=== PATIENT | male | born 1945 | race Caucasian/White ===

== ENCOUNTER 2024-10-28 04:10 | Observation (INO) ==
[2024-10-28 05:34] LABS: Basophils%(Percent) Auto 0.4 (0.0-1.3); Eosinophils#(Absolute)Auto 0.2 (0.0-0.3); Eosinophils%(Percent) Auto 2.4 % (0.0-4.0); Granulocytes % - Auto 62.6 % (49.1-73.1); Granulocytes#(Absolute)- Auto 5.1 (2.0-6.2); Hematocrit 39.3 % (41.3-50.1); Monocytes %(Percent)- Auto 12.7 % (4.5-10.7); Platelet Count 150 K/uL (142-355); White Blood Count 8.2 K/uL (3.7-9.6)
--- NOTE | 2024-10-28 05:47 | Emergency Department Note ---
HPI - URI/Sore Throat General Chief Complaint: Upper Respiratory Infection Stated Complaint: HEAD AND SINUS PRESSURE,COUGH Source: patient and family Limitations: no limitations Related Data Home Medications Medication Instructions Recorded Confirmed apixaban 5 mg tablet (Eliquis) 10 mg PO DAILY 06/01/24 06/01/24 finasteride 5 mg tablet 5 mg PO DAILY 06/01/24 06/01/24 gabapentin 600 mg tablet 600 mg PO TID 06/01/24 06/01/24 lisinopril 20 mg tablet 20 mg PO DAILY 06/01/24 06/01/24 tamsulosin 0.4 mg capsule 0.4 mg PO BEDTIME 06/01/24 06/01/24 Allergies Allergy/AdvReac Type Severity Reaction Status Date / Time No Known Drug Allergies Allergy Verified 10/28/24 04:53 PFSH PFS Medical History (Updated 06/01/24 @ 21:56 by MICHAEL Mcarthur) Benign prostate hyperplasia Hypertension Hyperlipidemia Surgical History (Updated 10/28/24 @ 05:01 by Iris Alexandra RN) H/O heart artery stent Social History Smoking status: never smoker Exam Constitutional: Vital Signs - 24 hr 10/28/24 04:10 10/28/24 05:30 Temperature 99.1 F Pulse Rate 92 H 56 L Respiratory Rate 20 19 Blood Pressure 109/74 130/70 Pulse Oximetry 93 L 96 Oxygen Delivery Me thod Room Air Room Air Course Vital Signs Vital signs: Vital Signs Temperature 99.1 F 10/28/24 04:10 Pulse Rate 92 H 10/28/24 04:10 Respiratory Rate 20 10/28/24 04:10 Blood Pressure 109/74 10/28/24 04:10 Pulse Oximetry 93 L 10/28/24 04:10 Oxygen Delivery Method Room Air 10/28/24 04:10 Temperature 99.1 F 10/28/24 04:10 Pulse Rate 56 L 10/28/24 05:30 Respiratory Rate 19 10/28/24 05:30 Blood Pressure 130/70 10/28/24 05:30 Pulse Oximetry 96 10/28/24 05:30 Oxygen Delivery Method Room Air 10/28/24 05:30 Discharge Plan Discharge Chief Complaint: Upper Respiratory Infection Prescriptions: No Action Eliquis 5 mg tablet 10 mg PO DAILY Patient Comments: TAKE ONE TABLET BY MOUTH TWICE DAILY finasteride 5 mg tablet 5 mg PO DAILY Patient Comments: TAKE ONE TABLET BY MOUTH DAILY gabapentin 600 mg tablet 600 mg PO TID Patient Comments: TAKE ONE TABLET BY MOUTH THREE TIMES DAILY lisinopril 20 mg tablet 20 mg PO DAILY Patient Comments: TAKE ONE TABLET BY MOUTH TWICE DAILY tamsulosin 0.4 mg capsule 0.4 mg PO BEDTIME Patient Comments: TAKE ONE CAPSULE BY MOUTH AT BEDTIME Print Language: Slovenian Referrals: Lucia Washington DO [Primary Care Provider] -
[2024-10-28 05:59] LABS: Specific Gravity Urine 1.025 (1.001-1.035); Urine Appearance CLEAR (CLEAR); Urine Blood NEGATIVE (NEG - TRACE); Urine Color YELLOW (STRAW/YELL.); Urine Urobilinogen Normal (NORMAL)
--- NOTE | 2024-10-28 06:40 | Emergency Department Note ---
HPI - URI/Sore Throat General Chief Complaint: Upper Respiratory Infection Stated Complaint: HEAD AND SINUS PRESSURE,COUGH Time Seen by Provider: 10/28/24 06:32 Source: patient and family Limitations: no limitations History of Present Illness HPI Narrative: This is a 79 year old male patient that presents to the ER with c/o cough, congestion, and bodyaches for 5 days. Patient denies any SOB, back pain, chest pain, abdominal pain or N/V/D MD elicited complaint: Reports cough, rhinorrhea and nasal congestion Onset (ago): day(s) (5) Exacerbating factors: Reports nothing Relieving factors: Reports nothing Associated symptoms: Reports rhinorrhea, nasal congestion and cough Treatments prior to arrival: Reports none Related Data Home Medications Medication Instructions Recorded Confirmed apixaban 5 mg tablet (Eliquis) 10 mg PO DAILY 06/01/24 06/01/24 finasteride 5 mg tablet 5 mg PO DAILY 06/01/24 06/01/24 gabapentin 600 mg tablet 600 mg PO TID 06/01/24 06/01/24 lisinopril 20 mg tablet 20 mg PO DAILY 06/01/24 06/01/24 tamsulosin 0.4 mg capsule 0.4 mg PO BEDTIME 06/01/24 06/01/24 Allergies Allergy/AdvReac Type Severity Reaction Status Date / Time No Known Drug Allergies Allergy Verified 10/28/24 04:53 Review of Systems Status of ROS 10 or more systems reviewed and unremark able except as noted in h istory and below Constitutional Denies: fever, chills, change in weight, fatigue or malaise Eyes Denies: change in vision, blurry vision, blind spots, light sensitivity or eye discomfort Ears, nose, mouth, and throat Reports: nasal discharge and nasal congestion; Denies: throat pain, neck pain, throat swelling, difficulty swallowing, hoarseness, mouth pain or swelling of lips/tongue Cardiovascular Denies: chest pain, palpitations, edema, swelling of feet/ankles, lightheadedness or shortness of breath with exertion Respiratory Reports: cough; Denies: shortness of breath, wheezing, stridor, pain on inspiration or change in phlegm color Gastrointestinal Denies: abdominal pain, nausea, vomiting, coffee grounds in vomit, heartburn, diarrhea or constipation Genitourinary Denies: painful urination, urinary frequency, urinary urgency, blood in urine or genital pain Musculoskeletal Denies: back pain, neck pain, extremity swelling, joint pain or limited range of motion Integumentary/Breast Denies: rash, itching, redness, skin pain, skin tenderness or skin swelling Neurological Denies: headache, numbness in extremities, weakness in extremities, lack of coordination or dizziness Psychiatric Denies: anxiety, mood swings, panic attacks, change in sleep pattern or hopelessness Endocrine Denies: excessive urination, excessive thirst, fatigue, cold intolerance or excessive sweating Hematologic/Lymphatic Denies: easy bruising, easy bleeding or enlarged lymph nodes Allergic/Immunologic Denies: hives, throat swelling, tongue swelling, facial swelling or wheezing PFSH PFSH Medical History (Updated 10/28/24 @ 09:58 by ANDREA Bush) Afib Benign prostate hyperplasia Hypertension Hyperlipidemia Surgical History (Updated 10/28/24 @ 05:01 by Iris Alexandra RN) H/O heart artery stent Social History Smoking status: never smoker Exam Constitutional: normal general appearance and no apparent distress Vital Signs - 24 hr 10/28/24 04:10 10/28/24 05:30 10/28/24 05:59 Temperature 99.1 F Pulse Rate 92 H 56 L 51 L Respiratory Rate 20 19 18 Blood Pressure 109/74 130/70 155/77 Pulse Oximetry 93 L 96 93 L Oxygen Delivery Me thod Room Air Room Air Room Air 10/28/24 06:30 10/28/24 06:55 Temperature Pulse Rate 100 H Respiratory Rate 20 Blood Pressure 160/112 Pulse Oximetry 94 L [facility] HENMT: normocephalic, head/scalp atraumatic, hearing grossly normal bilaterally, external ears normal, nasal mucous membranes normal, external nose normal, oral mucous membranes normal and oropharynx normal + nasal congestion Eyes: PERRL, EOMs intact bilaterally, conjunctivae normal and no scleral icterus Neck/C-Spine: visual inspection normal and trachea midline Lymph: no lymphadenopathy noted Chest: inspection of chest normal Respiratory: breath sounds equal bilaterally, normal respiratory effort, clear to auscultation bilaterally, no wheezes, no rales, no retractions and no use of accessory muscles Cardiovascular: normal heart rate noted, regular rhythm noted, no gallop, no rub, no murmur, no JVD, no clicks, peripheral pulses 2+ throughout and no additional abnormal heart sounds Gastrointestinal: abdomen normal to inspection, abdomen soft to palpation, nontender to palpation, nontender to percussion, nondistended, normoactive bowel sounds, no hepatosplenomegaly, no masses, no pulsatile mass, no ascites and no hernia Genitourinary: no CVA tenderness Back/Pelvis: spine normal to inspection Extremities: normal to inspection, normal to palpation, no tenderness, full ROM, no joint enlargement and no deformity Neurology: no movement abnormality noted, no focal motor deficit noted, no sensory deficits noted, speech normal, coordination normal, no pronator drift noted, no fasciculations noted and GCS normal Psychiatry: mental status grossly normal, oriented x3, thought process normal, cooperative, affect normal, psychomotor activity normal and memory normal Skin: skin color normal Course Course Hospital Course: 702: due to walking O2 sat dropping to 92% with increasing HR, will admit patient to the hospital for further evaluation and treatment. Reevaluation(s) Reevaluation #1: [id number]: Due to increase HR 150-160 Afib, patient has a hx of afib, new orders given Vital Signs Vital signs: Vital Signs Temperature 99.1 F 10/28/24 04:10 Pulse Rate 92 H 10/28/24 04:10 Respiratory Rate 20 10/28/24 04:10 Blood Pressure 109/74 10/28/24 04:10 Pulse Oximetry 93 L 10/28/24 04:10 Oxygen Delivery Method Room Air 10/28/24 04:10 Temperature 99.1 F 10/28/24 04:10 Pulse Rate 116 H 10/28/24 09:07 Respiratory Rate 18 10/28/24 08:35 Blood Pressure 102/66 10/28/24 09:07 Pulse Oximetry 95 10/28/24 09:07 Oxygen Delivery Method Nasal Cannula 10/28/24 09:07 Oxygen Flow Rate 2 10/28/24 09:00 MDM - URI/Sore Throat Differential Diagnosis Upper Respiratory Differential Diagnosis: upper respiratory infection Medical Records [facility] Medical Records Attestation: I reviewed the patient's medical records. Lab Data Attestation: I reviewed the patient's lab results. Labs: Lab Results 10/28/24 10/28/24 10/28/24 Range/Units 04:30 05:20 05:30 WBC 8.2 (3.7-9.6) K/uL RBC 4.1 L (4.40-5.80) M/uL Hgb 13.2 L (14.0-17.4) gm/dL Hct 39.3 L (41.3-50.1) % MCV 97.0 H (81.9-96.5) fl MCH 32.5 (27.6-33.7) pg MCHC 33.6 (33.0-35.7) g/dl RDW 13.6 (11.0-14.8) % Plt Count 150 (142-355) K/uL MPV 8.9 (6.0-10.4) fl Gran % 62.6 (49.1-73.1) % Lymph % (Auto) 21.9 (17.6-39.05) % [place] % (Auto) 12.7 H (4.5-10.7) % Eos % (Auto) 2.4 (0.0-4.0) % Baso % (Auto) 0.4 (0.0-1.3) Lymph # (Auto) 1.8 (0.8-2.9) [place] # (Auto) 1.0 H (0.2-0.8) Eos # (Auto) 0.2 (0.0-0.3) Baso # (Auto) 0.0 (0.0-0.1) Absolute Gran (auto) 5.1 (2.0-6.2) Sodium 137 (136-145) mmol/L Potassium 4.0 (3.6-5.2) mmol/L Chloride 103.0 (98-107) mmol/L Carbon Dioxide 29 (21-32) mmol/L Anion Gap 5.0 (4-14) mEq/L BUN 14 (7-18) mg/dL Creatinine 1.3 (0.6-1.3) mg/dL Estimated GFR 55.5 (>59.9) Glucose 103 (70-110) mg/dL Calcium 8.1 L (8.5-10.1) mg/dL Total Bilirubin 0.42 (0.0-1.0) mg/dL AST 19 (15-37) U/L ALT 13 L (30-65) U/L Alkaline Phosphatase 62 (50-136) U/L Total Protein 6.2 L (6.4-8.2) g/dL Albumin 2.9 L (3.4-5.0) g/dL Urine Color Yellow (STRAW/YELL.) Urine Appearance Clear (CLEAR) Ur Specific [place] 1.025 (1.001-1.035) Urine Protein Negative (NEGATIVE) Urine Glucose (UA) Normal (NORMAL) Urine Ketones Negative (NEGATIVE) Urine Occult Blood Negative (NEG - TRACE) Urine Nitrite Negative (NEGATIVE) Urine Bilirubin Negative (NEGATIVE) Urine Urobilinogen Normal (NORMAL) Ur Leukocyte Esterase Negative (NEGATIVE) Fluid pH 5.0 (5 - 9) COVID-19 (MARY) Not detected (Not Detectd) Influenza Type A Ag Negative (Negative) Influenza Type B Ag Negative (Negative) Imaging Data Attestation imaging: I have reviewed the pertinent imaging results. My Impression: CXR: + pneumonia ECG Data Attestation ECG: I have reviewed the pertinent ECG results. Discharge Plan Discharge Patient Disposition: Admitted As Observation Condition: Stable Clinical Impression: Pneumonia, Hypoxia Time of Disposition: 07:10
[2024-10-28] MEDS ORDERED: 0.9 % SODIUM CHLORIDE MB+ 50 ML IV ONE (06:43)
[2024-10-28] MEDS ORDERED: METHYLPREDNISOLONE SOD SUCC/PF 125 MG/2 ML VIAL ONE (06:44)
[2024-10-28] MEDS ORDERED: CEFTRIAXONE SODIUM 1 GM VIAL ONE (06:44)
[2024-10-28] MEDS: CEFTRIAXONE SODIUM 1 GM in 0.9 % SODIUM CHLORIDE MB+ 50 ML IV STA (06:45)
[2024-10-28] MEDS: METHYLPREDNISOLONE SOD SUCC/PF 125 MG/2 ML VIAL IVP ONE (06:46)
[2024-10-28] MEDS: IPRATROPIUM/ALBUTEROL SULFATE 3 ML AMPUL.NEB INH ONE (06:55)
[2024-10-28] MEDS: BUDESONIDE 0.5 MG/2 ML AMPUL.NEB INH ONE (06:55)
[2024-10-28] MEDS ORDERED: MAGNESIUM, ALUMINUM HYDROXIDE 30 ML ORAL.SUSP PO PRN (08:32)
[2024-10-28] MEDS ORDERED: bisacodyL 10 MG SUPP.RECT PR PRN (08:32)
[2024-10-28] MEDS ORDERED: ACETAMINOPHEN 500 MG TABLET PO PRN (08:32)
[2024-10-28] MEDS ORDERED: METOPROLOL TARTRATE 5 MG/5 ML VIAL INJ ONE (09:00)
[2024-10-28] MEDS: 0.9 % SODIUM CHLORIDE 1000 ML 1,000 ML IV STA (09:05)
[2024-10-28] MEDS ORDERED: 0.9 % SODIUM CHLORIDE 1000 ML 1,000 ML IV ONE (09:07)
--- NOTE | 2024-10-28 10:07 | History & Physical Report ---
H&P: HPI History of Present Illness Chief complaint: pneumonia,hypoxia Narrative: This is an 79 year old male patient that presented to the ER with c/o cough, congestion, and body aches for 5 days. Patient denied any SOB, back pain, chest pain, abdominal pain or N/V/D. Admitted to med/surg for further observation and treatment. Day one of hospital stay, patient has a history of urinary retention due to prostate not allowing adequate draining of the bladder. Patient went to his PCP on Saturday for symptoms mentioned above. PCP started him on an antibiotic and medication to relieve symptoms; he was told if he is not feeling better within the next 24-48 hrs to return to the office. Patient returned to the office and PCP sent him to the ER to be evaluated. Per nurse, after patient received Duo- Nebs he went into A-Fib with new onset RVR. Patient is currently on 2L O2 via nasal canula. Review of Systems Status of ROS 10 or more systems reviewed and unremark able except as noted in history and below Constitutional Denies: fever, chills, change in weight, fatigue or malaise Eyes Denies: change in vision, blurry vision, blind spots, light sensitivity or eye discomfort Ears, nose, mouth, and throat Reports: nasal discharge and nasal congestion; Denies: throat pain, neck pain, throat swelling, difficulty swallowing, hoarseness, mouth pain or swelling of lips/tongue Cardiovascular Denies: chest pain, palpitations, edema, swelling of feet/ankles, lightheadedness or shortness of breath with exertion Respiratory Reports: cough; Denies: shortness of breath, wheezing, stridor, pain on inspiration or change in phlegm color Gastrointestinal Denies: abdominal pain, nausea, vomiting, coffee grounds in vomit, heartburn, diarrhea, constipation or difficulty swallowing Genitourinary Denies: painful urination, urinary frequency, urinary urgency, blood in urine or genital pain Musculoskeletal Denies: back pain, neck pain, extremity swelling, joint pain or limited range of motion Integumentary/Breast Denies: rash, itching, redness, skin pain, skin tenderness or skin swelling Neurological Denies: headache, numbness in extremities, weakness in extremities, lack of coordination or dizziness Psychiatric Denies: anxiety, mood swings, panic attacks, change in sleep pattern or hopelessness Endocrine Denies: excessive urination, excessive thirst, fatigue, cold intolerance or excessive sweating Hematologic/Lymphatic Denies: easy bruising, easy bleeding or enlarged lymph nodes Allergic/Immunologic Denies: hives, throat swelling, tongue swelling, facial swelling or wheezing PFSH PFSH Medical History (Updated 10/28/24 @ 09:58 by ANDREA Bush) Afib Benign prostate hyperplasia Hypertension Hyperlipidemia Surgical History (Updated 10/28/24 @ 05:01 by Iris Alexandra RN) H/O heart artery stent Social History Smoking status: never smoker Meds Home Medications and Allergies Home Medications Medication Instructions Recorded Confirmed Type apixaban 5 mg tablet (Eliquis) 10 mg PO DAILY 06/01/24 06/01/24 History finasteride 5 mg tablet 5 mg PO DAILY 06/01/24 06/01/24 History gabapentin 600 mg tablet 600 mg PO TID 06/01/24 06/01/24 History lisinopril 20 mg tablet 20 mg PO DAILY 06/01/24 06/01/24 History tamsulosin 0.4 mg capsule 0.4 mg PO BEDTIME 06/01/24 06/01/24 History Allergies Allergy/AdvReac Type Severity Reaction Status Date / Time No Known Drug Allergies Allergy Verified 10/28/24 04:53 Exam Constitutional: normal general appearance, no apparent distress, abnormal body habitus (overweight) and alert Vital Signs - 24 hr 10/28/24 04:10 10/28/24 05:30 10/28/24 05:59 Temperature 99.1 F Pulse Rate 92 H 56 L 51 L Respiratory Rate 20 19 18 Blood Pressure 109/74 130/70 155/77 Pulse Oximetry 93 L 96 93 L Oxygen Delivery Me thod Room Air Room Air Room Air Oxygen Flow Rate 10/28/24 06:30 10/28/24 06:55 10/28/24 08:35 Temperature Pulse Rate 100 H 154 H Respiratory Rate 20 18 Blood Pressure 160/112 171/114 Pulse Oximetry 94 L 93 L 97 Oxygen Delivery Me thod Room Air Nasal Cannula Oxygen Flow Rate 2 10/28/24 08:58 10/28/24 09:00 10/28/24 09:07 Temperature Pulse Rate 154 H 148 H 116 H Respiratory Rate Blood Pressure 98/70 102/74 102/66 Pulse Oximetry 96 95 Oxygen Delivery Me thod Nasal Cannula Nasal Cannula Oxygen Flow Rate 2 HENMT: normocephalic, head/scalp atraumatic, hearing grossly normal bilaterally, external ears normal, nasal mucous membranes normal, external nose normal, oral mucous membranes normal and oropharynx normal + nasal congestion Eyes: PERRL, EOMs intact bilaterally, conjunctivae normal and no scleral icterus Neck/C-Spine: visual inspection normal and trachea midline Lymph: no lymphadenopathy noted Chest: inspection of chest normal Respiratory: breath sounds unequal, normal respiratory effort, auscultation abnormal (diminished breath sound) ([place]) and (bronchial breath sounds), no wheezes, no rales, no retractions and no use of accessory muscles Cardiovascular: normal heart rate noted, regular rhythm noted, no gallop, no rub, no murmur, no JVD, no clicks, peripheral pulses 2+ throughout and no additional abnormal heart sounds Gastrointestinal: abdomen normal to inspection, abdomen soft to palpation, nontender to palpation, nontender to percussion, nondistended, normoactive bowel sounds, no hepatosplenomegaly, no masses, no pulsatile mass, no ascites and no hernia Genitourinary: no CVA tenderness Back/Pelvis: spine normal to inspection Extremities: normal to inspection, normal to palpation, no tenderness, full ROM, no joint enlargement and no deformity Neurology: no movement abnormality noted, no focal motor deficit noted, no sensory deficits noted, speech normal, coordination normal, no pronator drift noted, no fasciculations noted and GCS normal Psychiatry: mental status grossly normal, oriented x3, thought process normal, cooperative, affect normal, psychomotor activity normal and memory normal Skin: skin color normal Assessment and Plan Assessment and Plan (1) Pneumonia: Qualifiers: Pneumonia type: due to unspecified organism Laterality: unspecified laterality Lung location: unspecified part of lung Qualified Code(s): J18.9 - Pneumonia, unspecified organism Code(s): J18.9 - Pneumonia, unspecified organism (2) Hypoxia: Code(s): R09.02 - Hypoxemia (3) SOB (shortness of breath): Code(s): R06.02 - Shortness of breath (4) Afib: Qualifiers: Atrial fibrillation type: unspecified chronic Qualified Code(s): I48.20 - Chronic atrial fibrillation, unspecified Code(s): I48.91 - Unspecified atrial fibrillation (5) Atrial fibrillation with RVR: Assessment and Plan: New on-set post Tim treatment. Code(s): I48.91 - Unspecified atrial fibrillation (6) Benign prostate hyperplasia: Qualifiers: Lower urinary tract symptom presence: symptoms present Lower urinary tract symptom detail: urinary retention Qualified Code(s): N40.1 - Benign prostatic hyperplasia with lower urinary tract symptoms; R33.8 - Other retention of urine Code(s): N40.0 - Benign prostatic hyperplasia without lower urinary tract symptoms Plan 2L O2 NC Methylprednisolone Sodium Succinate 40 mg INJ Q8H Albuterol Sulfate 3 ml INH Q4H Ceftriaxone Sodium 1 gm in Sodium Chloride 50 mls @ 100 mls/hr IV DAILY Acetaminophen 500 mg PO Q6H PRN Magnesium Hydroxide 30 ml PO DAILY PRN Bisacodyl 10 mg IA DAILY PRN Continue to monitor Results Labs Labs: CBC WBC 8.2 K/uL (3.7-9.6) 10/28/24 05:20 RBC 4.1 M/uL (4.40-5.80) L 10/28/24 05:20 Hgb 13.2 gm/dL (14.0-17.4) L 10/28/24 05:20 Hct 39.3 % (41.3-50.1) L 10/28/24 05:20 MCV 97.0 fl (81.9-96.5) H 10/28/24 05:20 MCH 32.5 pg (27.6-33.7) 10/28/24 05:20 MCHC 33.6 g/dl (33.0-35.7) 10/28/24 05:20 RDW 13.6 % (11.0-14.8) 10/28/24 05:20 Plt Count 150 K/uL (142-355) 10/28/24 05:20 MPV 8.9 fl (6.0-10.4) 10/28/24 05:20 Gran % 62.6 % (49.1-73.1) 10/28/24 05:20 Lymph % (Auto) 21.9 % (17.6-39.05) 10/28/24 05:20 [place] % (Auto) 12.7 % (4.5-10.7) H 10/28/24 05:20 Eos % (Auto) 2.4 % (0.0-4.0) 10/28/24 05:20 Baso % (Auto) 0.4 (0.0-1.3) 10/28/24 05:20 Lymph # (Auto) 1.8 (0.8-2.9) 10/28/24 05:20 [place] # (Auto) 1.0 (0.2-0.8) H 10/28/24 05:20 Eos # (Auto) 0.2 (0.0-0.3) 10/28/24 05:20 Baso # (Auto) 0.0 (0.0-0.1) 10/28/24 05:20 Absolute Gran (auto) 5.1 (2.0-6.2) 10/28/24 05:20 BMP Sodium 137 mmol/L (136-145) 10/28/24 05:20 Potassium 4.0 mmol/L (3.6-5.2) 10/28/24 05:20 Chloride 103.0 mmol/L (98-107) 10/28/24 05:20 Carbon Dioxide 29 mmol/L (21-32) 10/28/24 05:20 Anion Gap 5.0 mEq/L (4-14) 10/28/24 05:20 BUN 14 mg/dL (7-18) 10/28/24 05:20 Creatinine 1.3 mg/dL (0.6-1.3) 10/28/24 05:20 Estimated GFR 55.5 (>59.9) 10/28/24 05:20 Glucose 103 mg/dL (70-110) 10/28/24 05:20 Calcium 8.1 mg/dL (8.5-10.1) L 10/28/24 05:20 Total Bilirubin 0.42 mg/dL (0.0-1.0) 10/28/24 05:20 AST 19 U/L (15-37) 10/28/24 05:20 ALT 13 U/L (30-65) L 10/28/24 05:20 Alkaline Phosphatase 62 U/L (50-136) 10/28/24 05:20 Total Protein 6.2 g/dL (6.4-8.2) L 10/28/24 05:20 Albumin 2.9 g/dL (3.4-5.0) L 10/28/24 05:20 Liver Function Total Bilirubin 0.42 mg/dL (0.0-1.0) 10/28/24 05:20 AST 19 U/L (15-37) 10/28/24 05:20 ALT 13 U/L (30-65) L 10/28/24 05:20 Alkaline Phosphatase 62 U/L (50-136) 10/28/24 05:20 Total Protein 6.2 g/dL (6.4-8.2) L 10/28/24 05:20 Albumin 2.9 g/dL (3.4-5.0) L 10/28/24 05:20 Urine Urine Color Yellow (STRAW/YELL.) 10/28/24 05:30 Urine Appearance Clear (CLEAR) 10/28/24 05:30 Ur Specific [place] 1.025 (1.001-1.035) 10/28/24 05:30 Urine Protein Negative (NEGATIVE) 10/28/24 05:30 Urine Glucose (UA) Normal (NORMAL) 10/28/24 05:30 Urine Ketones Negative (NEGATIVE) 10/28/24 05:30 Urine Occult Blood Negative (NEG - TRACE) 10/28/24 05:30 Urine Nitrite Negative (NEGATIVE) 10/28/24 05:30 Urine Bilirubin Negative (NEGATIVE) 10/28/24 05:30 Urine Urobilinogen Normal (NORMAL) 10/28/24 05:30 Ur Leukocyte Esterase Negative (NEGATIVE) 10/28/24 05:30 Imaging Imaging ordered: Chest x-ray Radiologist's impression: Portable Chest Date of Service: 10/28/24 HISTORY: Shortness of breath COMPARISON: 07/29/2021 FINDINGS: Heart is enlarged. No congestive heart failure is noted. Lung contreras are clear. No pleural effusion or pneumothorax identified. Bony thorax is unremarkable. IMPRESSION: Cardiomegaly without congestive heart failure No acute infiltrates
[2024-10-28] MEDS: AZITHROMYCIN 500 MG 500 MG in 0.9 % SODIUM CHLORIDE 250 ML IV SCH (11:09)
[2024-10-28] MEDS: CEFTRIAXONE SODIUM 1 GM in 0.9 % SODIUM CHLORIDE MB+ 50 ML IV SCH (11:10)
[2024-10-28] MEDS: IPRATROPIUM/ALBUTEROL SULFATE 3 ML AMPUL.NEB INH SCH (13:14)
[2024-10-28] MEDS: levalbuterol HCL 1.25 MG/3 ML VIAL.NEB INH SCH (13:24)
[2024-10-28] MEDS: IPRATROPIUM BROMIDE 0.2 MG/ML SOLUTION INH SCH (13:24)
[2024-10-28] MEDS: METHYLPREDNISOLONE SOD SUCC/PF 40 MG/ML VIAL INJ SCH (15:54)
[2024-10-29] MEDS: 0.9 % SODIUM CHLORIDE 1000 ML 1,000 ML IV SCH (02:49)
[2024-10-29 06:43] LABS: Basophils%(Percent) Auto 0.2 (0.0-1.3); Granulocytes % - Auto 85.1 % (49.1-73.1); Granulocytes#(Absolute)- Auto 9.6 (2.0-6.2); Mean Corpuscular Volume 97.2 fl (81.9-96.5); Monocytes #(Absolute)- Auto 0.4 (0.2-0.8); Monocytes %(Percent)- Auto 3.7 % (4.5-10.7); Platelet Count 191 K/uL (142-355); White Blood Count 11.3 K/uL (3.7-9.6)
[2024-10-29 06:58] LABS: Potassium 3.9 mmol/L (3.6-5.2)
[2024-10-29] MEDS: CEFTRIAXONE SODIUM 1 GM in 0.9 % SODIUM CHLORIDE MB+ 50 ML IV SCH (09:26)
[2024-10-29] MEDS: AMIODARONE HCL 200 MG TABLET PO SCH (10:11)
[2024-10-29] MEDS: PANTOPRAZOLE SODIUM 40 MG TABLET.DR PO SCH (10:12)
[2024-10-29] MEDS: APIXABAN 2.5 MG TABLET PO SCH (10:12)
--- NOTE | 2024-10-29 11:35 | Progress Note ---
Progress Note: Subjective Subjective Interval history: Patient continues to be A-Fib with RVR. Pulse rate pacing in the 150's this a.m. One time order of Cardizem 5mg, [place] reduced to 135. Amiodarone Hcl 400 mg PO Q12H was added to treatment plan to help bring pulse rate down. Provider discussed possible transfer option with patient and family at bedside. Patient prefers to stay here for treatment, unless conditions worsen, then provider will transfer out to a higher level of care facility. Exam Exam: Patient in low abraham's position with family at bedside upon entering room for exam. Patient was very talkative and had a positive disposition. Constitutional: normal general appearance, no apparent distress, abnormal body habitus (overweight) and alert Vital Signs - 24 hr 10/28/24 11:48 10/28/24 13:10 10/28/24 13:24 Temperature 98.3 F Pulse Rate 86 Pulse Rate [Left B rachial] 57 L Respiratory Rate 20 Blood Pressure Blood Pressure [Le ft Arm] 117/63 Pulse Oximetry 95 99 Oxygen Delivery Me thod Nasal Cannula Oxygen Flow Rate 2 Fraction of Inspir ed Oxygen 10/28/24 13:25 10/28/24 16:00 10/28/24 19:35 Temperature 97.6 F 98.2 F Pulse Rate Pulse Rate [Left B rachial] 76 70 Respiratory Rate 19 17 Blood Pressure Blood Pressure [Le ft Arm] 125/64 133/44 Pulse Oximetry 97 95 95 Oxygen Delivery Me thod Nasal Cannula Nasal Cannula Room Air Oxygen Flow Rate 2 2 Fraction of Inspir ed Oxygen 10/28/24 20:10 10/28/24 20:10 10/28/24 23:44 Temperature 98.2 F Pulse Rate Pulse Rate [Left B rachial] 69 Respiratory Rate 18 Blood Pressure Blood Pressure [Le ft Arm] 133/71 Pulse Oximetry 94 L 94 L 97 Oxygen Delivery Me thod Nasal Cannula Room Air Oxygen Flow Rate 2 Fraction of Inspir ed Oxygen 10/29/24 02:48 10/29/24 03:33 10/29/24 04:38 Temperature 97.7 F Pulse Rate 134 H 113 H Pulse Rate [Left B rachial] 118 H Respiratory Rate 22 Blood Pressure 97/50 Blood Pressure [Le ft Arm] 97/50 Pulse Oximetry 94 L Oxygen Delivery Me thod Room Air Oxygen Flow Rate Fraction of Inspir ed Oxygen 10/29/24 07:53 10/29/24 08:49 10/29/24 10:19 Temperature 98.2 F Pulse Rate 135 H Pulse Rate [Left B rachial] 113 H Respiratory Rate 19 Blood Pressure 117/71 Blood Pressure [Le ft Arm] 134/90 Pulse Oximetry 96 98 Oxygen Delivery Me thod Nasal Cannula Oxygen Flow Rate 2 Fraction of Inspir ed Oxygen HENMT: normocephalic, head/scalp atraumatic, hearing grossly normal bilaterally, external ears normal, nasal mucous membranes normal, external nose normal, oral mucous membranes normal and oropharynx normal + nasal congestion Eyes: PERRL, EOMs intact bilaterally, conjunctivae normal and no scleral icterus Neck/C-Spine: visual inspection normal and trachea midline Lymph: no lymphadenopathy noted Chest: inspection of chest normal Respiratory: breath sounds unequal, normal respiratory effort, auscultation abnormal (diminished breath sound) (Lt Base) and (bronchial breath sounds), no wheezes, no rales, no retractions and no use of accessory muscles Cardiovascular: normal heart rate noted, rhythm abnormal (A-Fib w/ RVR) (irregular), no gallop, no rub, no murmur, no JVD, no clicks, peripheral pulses 2+ throughout and no additional abnormal heart sounds Gastrointestinal: abdomen normal to inspection, abdomen soft to palpation, nontender to palpation, nontender to percussion, nondistended, normoactive bowel sounds, no hepatosplenomegaly, no masses, no pulsatile mass, no ascites and no hernia Genitourinary: no CVA tenderness Back/Pelvis: spine normal to inspection Extremities: normal to inspection, normal to palpation, no tenderness, full ROM, no joint enlargement and no deformity Neurology: no movement abnormality noted, no focal motor deficit noted, no sensory deficits noted, speech normal, coordination normal, no pronator drift noted, no fasciculations noted and GCS normal Psychiatry: mental status grossly normal, oriented x3, thought process normal, cooperative, affect normal, psychomotor activity normal and memory normal Skin: skin color normal Progress Note: Objective Labs Labs: CBC WBC 11.3 K/uL (3.7-9.6) H 10/29/24 06:00 RBC 4.4 M/uL (4.40-5.80) 10/29/24 06:00 Hgb 14.5 gm/dL (14.0-17.4) 10/29/24 06:00 Hct 43.0 % (41.3-50.1) 10/29/24 06:00 MCV 97.2 fl (81.9-96.5) H 10/29/24 06:00 MCH 32.8 pg (27.6-33.7) 10/29/24 06:00 MCHC 33.8 g/dl (33.0-35.7) 10/29/24 06:00 RDW 13.6 % (11.0-14.8) 10/29/24 06:00 Plt Count 191 K/uL (142-355) 10/29/24 06:00 MPV 8.7 fl (6.0-10.4) 10/29/24 06:00 Gran % 85.1 % (49.1-73.1) H 10/29/24 06:00 Lymph % (Auto) 11.0 % (17.6-39.05) L 10/29/24 06:00 [place] % (Auto) 3.7 % (4.5-10.7) L 10/29/24 06:00 Eos % (Auto) 0.0 % (0.0-4.0) 10/29/24 06:00 Baso % (Auto) 0.2 (0.0-1.3) 10/29/24 06:00 Lymph # (Auto) 1.2 (0.8-2.9) 10/29/24 06:00 [place] # (Auto) 0.4 (0.2-0.8) 10/29/24 06:00 Eos # (Auto) 0.0 (0.0-0.3) 10/29/24 06:00 Baso # (Auto) 0.0 (0.0-0.1) 10/29/24 06:00 Absolute Gran (auto) 9.6 (2.0-6.2) H 10/29/24 06:00 BMP Sodium 141 mmol/L (136-145) 10/29/24 06:00 Potassium 3.9 mmol/L (3.6-5.2) 10/29/24 06:00 Chloride 106.0 mmol/L (98-107) 10/29/24 06:00 Carbon Dioxide 24 mmol/L (21-32) 10/29/24 06:00 Anion Gap 11.0 mEq/L (4-14) 10/29/24 06:00 BUN 19 mg/dL (7-18) H 10/29/24 06:00 Creatinine 1.3 mg/dL (0.6-1.3) 10/29/24 06:00 Estimated GFR 55.5 (>59.9) 10/29/24 06:00 Glucose 155 mg/dL (70-110) H 10/29/24 06:00 Calcium 8.8 mg/dL (8.5-10.1) 10/29/24 06:00 Phosphorus 3.0 mg/dL (2.5-4.9) 10/29/24 06:00 Magnesium 2.7 mg/dL (1.8-2.4) H* 10/29/24 06:00 Total Bilirubin 0.28 mg/dL (0.0-1.0) 10/29/24 06:00 AST 16 U/L (15-37) 10/29/24 06:00 ALT 10 U/L (30-65) L 10/29/24 06:00 Alkaline Phosphatase 70 U/L (50-136) 10/29/24 06:00 Total Protein 7.0 g/dL (6.4-8.2) 10/29/24 06:00 Albumin 3.1 g/dL (3.4-5.0) L 10/29/24 06:00 Liver Function Total Bilirubin 0.28 mg/dL (0.0-1.0) 10/29/24 06:00 AST 16 U/L (15-37) 10/29/24 06:00 ALT 10 U/L (30-65) L 10/29/24 06:00 Alkaline Phosphatase 70 U/L (50-136) 10/29/24 06:00 Total Protein 7.0 g/dL (6.4-8.2) 10/29/24 06:00 Albumin 3.1 g/dL (3.4-5.0) L 10/29/24 06:00 Urine Urine Color Yellow (STRAW/YELL.) 10/28/24 05:30 Urine Appearance Clear (CLEAR) 10/28/24 05:30 Ur Specific [place] 1.025 (1.001-1.035) 10/28/24 05:30 Urine Protein Negative (NEGATIVE) 10/28/24 05:30 Urine Glucose (UA) Normal (NORMAL) 10/28/24 05:30 Urine Ketones Negative (NEGATIVE) 10/28/24 05:30 Urine Occult Blood Negative (NEG - TRACE) 10/28/24 05:30 Urine Nitrite Negative (NEGATIVE) 10/28/24 05:30 Urine Bilirubin Negative (NEGATIVE) 10/28/24 05:30 Urine Urobilinogen Normal (NORMAL) 10/28/24 05:30 Ur Leukocyte Esterase Negative (NEGATIVE) 10/28/24 05:30 Imaging Chest x-ray: Radiologist's impression: Portable chest Date of Service: 10/28/24 HISTORY: Shortness of breath COMPARISON: 07/29/2021 FINDINGS: Heart is enlarged. No congestive heart failure is noted. Lung contreras are clear. No pleural effusion or pneumothorax identified. Bony thorax is unremarkable. IMPRESSION: Cardiomegaly without congestive heart failure No acute infiltrates XR CHEST 2V Date of Service: 10/29/24 HISTORY: HYPOXIA, PNEUMONIA; COMPARISON: October 28, 2024 FINDINGS: The trachea is midline. The cardiac silhouette is mildly enlarged. Mild emphysema is present. The lungs are clear without focal infiltrate or effusion. The bony thorax is unremarkable. IMPRESSION: No acute cardiopulmonary disease. Progress Note: A&P Assessment and Plan (1) Pneumonia: Qualifiers: Pneumonia type: due to unspecified organism Laterality: unspecified laterality Lung location: unspecified part of lung Qualified Code(s): J18.9 - Pneumonia, unspecified organism (2) Hypoxia: (3) SOB (shortness of breath): (4) Afib: Qualifiers: Atrial fibrillation type: unspecified chronic Qualified Code(s): I48.20 - Chronic atrial fibrillation, unspecified (5) Atrial fibrillation with RVR: Assessment and Plan: New on-set post DuoNebs treatment. (6) Benign prostate hyperplasia: Qualifiers: Lower urinary tract symptom presence: symptoms present Lower urinary tract symptom detail: urinary retention Qualified Code(s): N40.1 - Benign prostatic hyperplasia with lower urinary tract symptoms; R33.8 - Other retention of urine Plan Complete current bag of fluids and heplock Ceftriaxone Sodium 1 gm in Sodium Chloride 50 mls @ 100 mls/hr IV DAILY Apixaban 5 mg PO Q12H Gabapentin 600 mg PO TID Lisinopril 20 mg PO BID Pantoprazole Sodium 40 mg PO DAILY Tamsulosin Hcl 0.4 mg PO BEDTIME Diltiazem Hcl 60 mg PO Q12H Amiodarone Hcl 400 mg PO Q12H Continue to monitor Fall Risk Details Moy Fall Scale Risk Level: Moderate Fall Risk Current Medications: Current Medications Acetaminophen (Acetaminophen 500 Mg Tablet) 500 mg PO Q6H PRN PRN Reason: Pain Amiodarone HCl (Amiodarone Hcl 200 Mg Tablet) 400 mg PO Q12H [facility] Last Admin: 10/29/24 10:11 Dose: 400 mg Apixaban (Apixaban 2.5 Mg Tablet) 5 mg PO Q12H [facility] Last Admin: 10/29/24 10:12 Dose: 5 mg Bisacodyl (Bisacodyl 10 Mg Supp.Rect) 10 mg [place] DAILY PRN PRN Reason: Constipation Diltiazem HCl (Diltiazem Hcl 30 Mg Tablet) 60 mg PO Q12H [facility] Finasteride (Finasteride 5 Mg Tablet) 5 mg PO DAILY [facility] Furosemide (Furosemide 20 Mg Tablet) 20 mg PO DAILY [facility] Gabapentin (Gabapentin 300 Mg Capsule) 600 mg PO TID [facility] Ceftriaxone Sodium 1 gm/ (Sodium Chloride) 50 mls @ 100 mls/hr IV DAILY [facility] Last Infusion: 10/29/24 10:20 Dose: Infused Azithromycin 500 mg/ Sodium (Chloride) 250 mls @ 250 mls/hr IV DAILY [facility] Last Infusion: 10/29/24 11:13 Dose: Infused Sodium Chloride (Sodium Chloride) 1,000 mls @ 100 mls/hr IV CONT [facility] Last Admin: 10/29/24 02:49 Dose: 100 mls/hr Ipratropium [place] (Ipratropium [place] 0.2 Mg/Ml Solution) 0.2 mg INH Q6H [facility] Last Admin: 10/29/24 08:45 Dose: 0.2 mg Levalbuterol HCl (Levalbuterol Hcl 1.25 Mg/3 Ml Vial.Neb) 1.25 mg INH RQ6 [facility] Last Admin: 10/29/24 08:45 Dose: 1.25 mg Lisinopril (Lisinopril 20 Mg Tablet) 20 mg PO BID [facility] Magnesium Hydroxide (Magnesium, Aluminum Hydroxide 30 Ml Oral.Susp) 30 ml PO DAILY PRN PRN Reason: gerd Methylprednisolone Sodium Succinate (Methylprednisolone Sod Succ/Pf 40 Mg/Ml Vial) 40 mg INJ Q8H [facility] Last Admin: 10/29/24 06:37 Dose: 40 mg Pantoprazole Sodium (Pantoprazole Sodium 40 Mg Tablet.Dr) 40 mg PO DAILY [facility] Last Admin: 10/29/24 10:12 Dose: 40 mg Tamsulosin HCl (Tamsulosin Hcl 0.4 Mg Capsule) 0.4 mg PO BEDTIME [facility] Time Spent With Patient Time: Total time spent is greater than 50% in coordination of care (as documented) at patient's floor/unit and/or counseling patient:
[2024-10-29] MEDS: WATER IV ONE (12:02)
[2024-10-29] MEDS: DEXTROSE 5% IV ONE (12:02)
[2024-10-29] MEDS: AMIODARONE HCL IV ONE (12:02)
[2024-10-29] MEDS: SODIUM CHLORIDE IV ONE (14:15)
[2024-10-29] MEDS: AMIODARONE HCL 50 MG/ML ONE (14:15)
[2024-10-29] MEDS: GABAPENTIN 300 MG CAPSULE PO SCH (16:01)
[2024-10-29] MEDS ORDERED: IPRATROPIUM BROMIDE 0.2 MG/ML SOLUTION INH SCH (20:00)
[2024-10-29] MEDS: lisinopriL 20 MG TABLET PO SCH (20:46)
[2024-10-29] MEDS: TAMSULOSIN HCL 0.4 MG CAPSULE PO SCH (20:46)
[2024-10-29] MEDS: dilTIAZem HCL 30 MG TABLET PO SCH (20:47)
[2024-10-30 05:44] LABS: Basophils%(Percent) Auto 0.2 (0.0-1.3); Granulocytes#(Absolute)- Auto 10.4 (2.0-6.2); White Blood Count 12.8 K/uL (3.7-9.6)
[2024-10-30 05:47] LABS: Granulocytes % - Auto 81.3 % (49.1-73.1); Hematocrit 39.8 % (41.3-50.1); Mean Corpuscular Volume 97.5 fl (81.9-96.5); Monocytes #(Absolute)- Auto 0.7 (0.2-0.8); Monocytes %(Percent)- Auto 5.7 % (4.5-10.7); Platelet Count 202 K/uL (142-355)
[2024-10-30 06:30] LABS: Potassium 4.6 mmol/L (3.6-5.2)
[2024-10-30 08:17] VITALS: RESP 18
[2024-10-30] MEDS: FUROSEMIDE 20 MG TABLET PO SCH (09:51)
[2024-10-30] MEDS: FINASTERIDE 5 MG TABLET PO SCH (09:51)
[2024-10-30 11:57] VITALS: BP 100/76; PULSE 65; TEMP 97.8
--- NOTE | 2024-10-30 12:20 | Discharge Summary ---
DS: Providers Provider Date of admission: 10/28/24 07:18 Primary care physician: Lucia Washington DO Admitting clinician: Lucia Washington Attending physician on admission: Lucia Washington Attending physician on discharge: Lucia Washington Discharging clinician: Lucia Washington Anticipated date of discharge: 10/30/24 DS: Diagnosis Discharge Diagnosis (1) Atrial fibrillation with RVR: (2) Pneumonia: Qualifiers: Laterality: unspecified laterality Lung location: unspecified part of lung Pneumonia type: due to unspecified organism Qualified Code(s): J18.9 - Pneumonia, unspecified organism (3) COPD exacerbation: (4) Electrolyte abnormality: (5) Systolic congestive heart failure: Qualifiers: Heart failure chronicity: acute on chronic Qualified Code(s): I50.23 - Acute on chronic systolic (congestive) heart failure (6) Hypoxia: (7) SOB (shortness of breath): (8) Afib: Qualifiers: Atrial fibrillation type: unspecified chronic Qualified Code(s): I48.20 - Chronic atrial fibrillation, unspecified (9) Benign prostate hyperplasia: Qualifiers: Lower urinary tract symptom detail: urinary retention Lower urinary tract symptom presence: symptoms present Qualified Code(s): N40.1 - Benign prostatic hyperplasia with lower urinary tract symptoms; R33.8 - Other retention of urine (10) Dementia: Qualifiers: Dementia behavioral or psychological symptom: without behavioral, psychotic, or mood disturbance or anxiety Dementia severity: mild Dementia type: vascular dementia Qualified Code(s): F01.A0 - Vascular dementia, mild, without behavioral disturbance, psychotic disturbance, mood disturbance, and anxiety (11) Arthritis: (12) GERD (gastroesophageal reflux disease): Qualifiers: Esophagitis presence: without esophagitis Qualified Code(s): K21.9 - Gastro-esophageal reflux disease without esophagitis (13) Bladder outlet obstruction: (14) Hypertension: Qualifiers: Hypertension type: primary hypertension Qualified Code(s): I10 - Essential (primary) hypertension Plan Discharge home for self care. DS: Summary Hospital Course Hospital Course: This is an 79 year old male patient that presented to the ER with c/o cough, congestion, and body aches for 5 days. Patient denied any SOB, back pain, chest pain, abdominal pain or N/V/D. Admitted to med/surg for further observation and treatment. Day one of hospital stay, patient has a history of urinary retention due to prostate not allowing adequate draining of the bladder. Patient went to his PCP on Saturday for symptoms mentioned above. PCP started him on an antibiotic and medication to relieve symptoms; he was told if he is not feeling better within the next 24-48 hrs to return to the office. Patient returned to the office and PCP sent him to the ER to be evaluated. Per nurse, after patient received Duo- Nebs he went into A-Fib with new onset RVR. Patient is currently on 2L O2 via [place]. Day two of hospital stay, patient continues to be a-fib with RVR. Pulse rate pacing in the 150's this a.m. One time order of Cardizem 5mg, [place] reduced to 135. Amiodarone Hcl 400mg PO Q12H was added to treatment plan to help bring pulse rate down. Provider discussed possible transfer option with patient and family at bedside. Patient prefers to stay here for treatment, unless conditions worsen, then provider will transfer out to a higher level of care facility. Day three of hospital stay, patient pulse rate has improved and ranging between 80's-90's this a.m. Patient is ready to be discharged home for self care. Follow up with Dr. Treadwell, Cardiology, as soon as possible. Follow up with PCP in 5-7 days of discharge or sooner if symptoms worsen. Provider encourages BP and Pulse Journal for PCP and [employer] to review. Status at Discharge Functional status at discharge: independent ambulation Overall status at discharge: patient is back to baseline Time Spent with Patient Time attestation: Total time spent providing and/or coordinating discharge services: Time spent: greater than 30 minutes Exam Exam: Patient in abraham's position with family member at bedside at time of exam. Constitutional: normal general appearance, no apparent distress, abnormal body habitus (overweight) and alert Vital Signs - 24 hr 10/29/24 12:00 10/29/24 12:05 10/29/24 12:20 Temperature 97.9 F Pulse Rate Pulse Rate [Left B rachial] 120 H 134 H 141 H Respiratory Rate 19 Blood Pressure Blood Pressure [Le ft Arm] 107/81 107/71 105/75 Pulse Oximetry 96 Oxygen Delivery Me thod Room Air Oxygen Flow Rate 10/29/24 12:25 10/29/24 12:30 10/29/24 12:40 Temperature Pulse Rate Pulse Rate [Left B rachial] 138 H 130 H 126 H Respiratory Rate Blood Pressure Blood Pressure [Le ft Arm] 115/70 114/66 103/53 Pulse Oximetry Oxygen Delivery Me thod Oxygen Flow Rate 10/29/24 13:05 10/29/24 14:14 10/29/24 14:16 Temperature Pulse Rate 110 H 110 H Pulse Rate [Left B rachial] 115 H Respiratory Rate Blood Pressure Blood Pressure [Le ft Arm] 99/59 Pulse Oximetry Oxygen Delivery Me thod Oxygen Flow Rate 10/29/24 14:26 10/29/24 16:00 10/29/24 20:00 Temperature 98.1 F 97.5 F L Pulse Rate Pulse Rate [Left B rachial] 79 112 H Respiratory Rate 19 16 Blood Pressure Blood Pressure [Le ft Arm] 113/90 130/110 Pulse Oximetry 100 95 95 Oxygen Delivery Me thod Room Air Nasal Cannula Oxygen Flow Rate 3 10/29/24 20:46 10/29/24 20:47 10/29/24 22:34 Temperature Pulse Rate 112 H 108 H Pulse Rate [Left B rachial] Respiratory Rate Blood Pressure 130/110 130/110 130/110 Blood Pressure [Le ft Arm] Pulse Oximetry Oxygen Delivery Me thod Oxygen Flow Rate 10/30/24 00:00 10/30/24 03:21 10/30/24 04:00 Temperature 97.5 F L 97.5 F L Pulse Rate 102 H Pulse Rate [Left B rachial] 102 H 91 H Respiratory Rate 16 16 Blood Pressure 117/76 Blood Pressure [Le ft Arm] 117/76 100/71 Pulse Oximetry 95 95 Oxygen Delivery Me thod Nasal Cannula Nasal Cannula Oxygen Flow Rate 2 2 10/30/24 08:00 10/30/24 08:31 10/30/24 09:51 Temperature 97.7 F Pulse Rate 120 H Pulse Rate [Left B rachial] 54 L Respiratory Rate 18 Blood Pressure 113/77 Blood Pressure [Le ft Arm] 113/77 Pulse Oximetry 97 Oxygen Delivery Me thod Room Air Oxygen Flow Rate 10/30/24 09:51 10/30/24 10:50 Temperature Pulse Rate 91 H Pulse Rate [Left B rachial] Respiratory Rate Blood Pressure 113/77 118/65 Blood Pressure [Le ft Arm] Pulse Oximetry Oxygen Delivery Me thod Oxygen Flow Rate HENMT: normocephalic, head/scalp atraumatic, hearing grossly normal bilater ally, external ears normal, nasal mucous membranes normal, external nose normal, oral mucous membranes normal and oropharynx normal + nasal congestion Eyes: PERRL, EOMs intact bilaterally, conjunctivae normal and no scleral icterus Neck/C-Spine: visual inspection normal and trachea midline Lymph: no lymphadenopathy noted Chest: inspection of chest normal Respiratory: breath sounds equal bilaterally, normal respiratory effort, clear to auscultation bilaterally, no wheezes, no rales, no retractions and no use of accessory muscles Cardiovascular: normal heart rate noted, regular rhythm noted, no gallop, no rub, no murmur, no JVD, no clicks, peripheral pulses 2+ throughout and no additional abnormal heart sounds Gastrointestinal: abdomen normal to inspection, abdomen soft to palpation, nontender to palpation, nontender to percussion, nondistended, normoactive bowel sounds, no hepatosplenomegaly, no masses, no pulsatile mass, no ascites and no hernia Genitourinary: no CVA tenderness Back/Pelvis: spine normal to inspection Extremities: normal to inspection, normal to palpation, no tenderness, full ROM, no joint enlargement and no deformity Neurology: no movement abnormality noted, no focal motor deficit noted, no sensory deficits noted, speech normal, coordination normal, no pronator drift noted, no fasciculations noted and GCS normal Psychiatry: mental status grossly normal, oriented x3, thought process normal, cooperative, affect normal, psychomotor activity normal and memory normal Skin: skin color normal, no rash, no lesions, no ecchymosis noted, no wounds, no lacerations, skin turgor normal and no jaundice DS: Data Data Completed and Pending Labs on day of discharge: Labs from last 24 hours 10/30/24 05:35 WBC 12.8 H RBC 4.1 L Hgb 13.1 L Hct 39.8 L MCV 97.5 H MCH 32.2 MCHC 33.0 RDW 13.7 Plt Count 202 MPV 8.1 Gran % 81.3 H Lymph % (Auto) 12.8 L [place] % (Auto) 5.7 Eos % (Auto) 0.0 Baso % (Auto) 0.2 Lymph # (Auto) 1.6 [place] # (Auto) 0.7 Eos # (Auto) 0.0 Baso # (Auto) 0.0 Absolute Gran (auto) 10.4 H Sodium 139 Potassium 4.6 Chloride 107.0 Carbon Dioxide 26 Anion Gap 6.0 BUN 23 H Creatinine 1.1 Estimated GFR 67.9 Glucose 129 H Calcium 8.1 L Phosphorus 2.7 Magnesium 2.6 H Total Bilirubin 0.22 AST 16 ALT 13 L Alkaline Phosphatase 57 Total Protein 5.9 L Albumin 2.6 L Imaging Chest x-ray: Radiologist's impression: Portable chest Date of Service: 10/28/24 HISTORY: Shortness of breath COMPARISON: 07/29/2021 FINDINGS: Heart is enlarged. No congestive heart failure is noted. Lung contreras are clear. No pleural effusion or pneumothorax identified. Bony thorax is unremarkable. IMPRESSION: Cardiomegaly without congestive heart failure No acute infiltrates XR CHEST 2V Date of Service: 10/29/24 HISTORY: HYPOXIA, PNEUMONIA; COMPARISON: October 28, 2024 FINDINGS: The trachea is midline. The cardiac silhouette is mildly enlarged. Mild emphysema is present. The lungs are clear without focal infiltrate or effusion. The bony thorax is unremarkable. IMPRESSION: No acute cardiopulmonary disease. Discharge Plan Discharge Disposition: Home, Self-Care Condition: Improved Discharge Medications: New amiodarone [Pacerone] 200 mg Tablet 400 mg PO Q12H Qty: 60 0RF diltiazem HCl 30 mg Tablet 90 mg PO Q12H Qty: 90 0RF Continued pantoprazole 40 mg tablet,delayed release (DR/EC) 40 mg PO DAILY Patient Comments: TAKE ONE TABLET BY MOUTH DAILY diclofenac sodium 75 mg tablet,delayed release (DR/EC) 75 mg PO Q12H Patient Comments: TAKE ONE TABLET BY MOUTH TWICE DAILY loratadine 10 mg tablet 10 mg PO DAILY Patient Comments: TAKE ONE TABLET BY MOUTH DAILY potassium chloride 10 mEq tablet,ER particles/crystals 10 meq PO DAILY Patient Comments: TAKE ONE TABLET BY MOUTH DAILY NEEDED pregabalin 75 mg capsule 75 mg PO Q12H Patient Comments: TAKE ONE CAPSULE BY MOUTH TWICE DAILY furosemide 20 mg tablet 20 mg PO DAILY Patient Comments: TAKE ONE TABLET BY MOUTH DAILY NEEDED Eliquis 5 mg tablet 5 mg PO Q12H Patient Comments: TAKE ONE TABLET BY MOUTH TWICE DAILY finasteride 5 mg tablet 5 mg PO DAILY Patient Comments: TAKE ONE TABLET BY MOUTH DAILY lisinopril 20 mg tablet 20 mg PO BID Patient Comments: TAKE ONE TABLET BY MOUTH TWICE DAILY tamsulosin 0.4 mg capsule 0.4 mg PO BEDTIME Patient Comments: TAKE ONE CAPSULE BY MOUTH AT BEDTIME Discontinued hydralazine 25 mg tablet 25 mg PO Q8H Patient Comments: TAKE ONE TABLET BY MOUTH EVERY 8 HOURS cephalexin 500 mg capsule 500 mg PO Q8H Patient Comments: TAKE ONE CAPSULE BY MOUTH THREE TIMES DAILY FOR 7 DAYS gabapentin 600 mg tablet 600 mg PO TID Patient Comments: TAKE ONE TABLET BY MOUTH THREE TIMES DAILY Discharge Orders: Discharge Order (Routine); Ordered 10/30/24 Ordered By: Lucia Washington Activity: increase activity as tolerated Diet: low fat, low cholesterol Interventions: Discharge Assessment Last Done: 10/30/24 12:00 MED/SURG & ICU Observation Charge Sheet Last Done: 10/30/24 06:30 Patient Instructions: A-fib (Atrial Fibrillation) (GEN) Activity Restrictions/Additional Instructions: needs cardiology follow up as soon as possible Dr Treadwell states he will see him in [place] daily weights if up or down 5 pounds call doctor Felix mcrae follow up PCP in 5-7 days and prn if worsens or concerns and the patient has my cell phone number if he needs to give me a call take BP and pulse journal to PCP and cardiology appointment Forms: Portal/Health Info Access Inst Follow-Ups: Lucia Washington DO [Primary Care Provider] - 11/05/24 10:15 am Discharge Date/Time: 10/30/24 12:26
[2024-10-30] MEDS ORDERED: PREGABALIN 75 MG CAPSULE PO SCH (21:00)
== END 2024-10-30 12:26 | disposition home or self-care (01) ==
LOC: ED 04:10 → MS 04:10
PROVIDERS: ADMIT Family Medicine; ATTEND Family Medicine